=== PATIENT | female | born 1950 | race Caucasian/White ===

== ENCOUNTER 2024-04-02 10:15 | Outpatient (RCR) | payer MEDICARE, SELFPAY | END 2024-04-02 12:15 | LOC: PUL 10:15 | PROVIDERS: Referring Provider Internal Medicine Pulmonary Disease; Visit Provider Internal Medicine Pulmonary Disease | DX: J84.9 Interstitial pulmonary disease, unspecified (principal); J84.89 Other specified interstitial pulmonary diseases; R06.02 Shortness of breath | CPT/HCPCS: G0237; G0238 ==